=== PATIENT | male | born 1985 | race Caucasian/White ===

== ENCOUNTER → 2016-08-26 | Outpatient (CLI) | payer BC ==
[~2016-08-26] MED LIST: ALPR1TAB2 PO; CARI350T PO; CITA10TA8 PO; CONTRAST GIVEN MC PRN; GABA-585 PO; HYDR-971 PO; IBUP-1060 PO; IOHEXOL 180 MG/ML 10 ML VIAL. IT ONE; LAMO100T5 PO; LIDOCAINE 1% Multi-Dose 20 ML VIAL. ID ONE; LOXA5CAP PO
--- NOTE | 2016-08-26 10:56 | KCIC ---
PROCEDURE Lumbar spine, flexion and extension views; fluoroscopic guided lumbar puncture for CT myelography; lumbar spine CT myelogram. HISTORY Lower back pain and left lower extremity radiculopathy. TECHNIQUE The risks of the procedure were discussed with the patient and written and verbal consent was obtained. A time-out was performed. Fluoroscopic imaging of the lumbar spine was performed and a site overlying L4-L5 was selected. The skin overlying this region was sterilely prepped, draped and infiltrated with 1 percent lidocaine. A 25 gauge needle was then advanced into the thecal sac and appropriate needle tip positioning was confirmed with spontaneous yield of cerebral spinal fluid within the needle hub. 15 cc Omnipaque 180 intrathecal contrast was injected. The needle was removed and a sterile bandage was placed at the needle entry site. Prone, bilateral oblique, lateral neutral and flexion and extension views of the lumbar spine were obtained. Six fluoroscopic images were obtained for a total fluoroscopy time of 36 seconds. The patient was then transferred to the CT suite for the post injection CT portion of the exam. The patient tolerated the procedure without difficulty and was discharged in stable condition. One or more of the following individualized dose reduction techniques were utilized for this examination: 1. Automated exposure control; 2. Adjustment of the mA and/or kV according to patient size; 3. Use of iterative reconstruction technique. COMPARISON There is no prior study for comparison at the time of dictation. FINDINGS The flexion and extension views of the lumbar spine demonstrate 5 non rib-bearing lumbar vertebral segments. There is minimal decreased anterior vertebral body height at L1, likely developmental. There is minimal decreased disc space at L5-S1. There is no listhesis or abnormal motion between flexion and extension. The CT images demonstrate no listhesis. The conus terminates at L1. No suspicious lytic or sclerotic osseous lesion is seen. At L5-S1, there is a broad-based left paracentral disc protrusion superimposed on endplate remodeling which deviates the traversing left S1 nerve root. There is no significant stenosis at this level. No additional disc protrusion is seen. IMPRESSION 1. L5-S1: Broad-based left paracentral disc protrusion superimposed on endplate remodeling, resulting in deviation of the traversing left S1 nerve root without significant stenosis. 2. No additional protrusion or significant stenosis. Electronically signed by: Anel Miller (Aug 26, 2016 10:55:20)
== END | disposition home or self-care (01) ==
LOC: KCIC 08:39
PROVIDERS: ATTEND Neurological Surgery
DX: M54.16 Radiculopathy, lumbar region (principal); M51.27 Other intervertebral disc displacement, lumbosacral region
CPT/HCPCS: 72110; 72132; 72265